=== PATIENT | female | born 1970 | race Caucasian/White ===

== ENCOUNTER 2018-06-10 14:03 | Emergency (ER) | payer OTHER ==
[~2018-06-10] VITALS: Ht 172.7 cm; Wt 111.1 kg
[~2018-06-10 14:03] MED LIST: HYDROCODONE-AP1 EAC6 PO
[2018-06-10] MEDS ORDERED: MEDROLDOSEPACK PO (15:08)
[2018-06-10] MEDS ORDERED: ULTRAM 50MG TAB50 MG PO (15:08)
[2018-06-10 15:39] VITALS: BP 165/74
== END 2018-06-10 15:39 | disposition home or self-care (01) ==
LOC: M.ERS 14:03
DX: M25.512 Pain in left shoulder (principal)